=== PATIENT | female | born 1990 | race Caucasian/White ===

== ENCOUNTER 2018-08-26 15:30 | Day surgery (SDC) | payer OTHER, SELFPAY ==
[2018-08-25 15:18] VITALS: BMI 21.2
[2018-08-26] VITALS (8 sets, daily range): BP systolic 75–115; BP diastolic 39–67; PULSE 63–93; RESP 10–16; TEMP 36.7–36.9; O2SAT 96–100; BMI 20.5
--- NOTE | 2018-08-26 | PATH_ITS ---
[facility] Accession Number: [id number] . 01 Material submitted: . PART A: LEEP PART B: ENDOCERVICAL CURETTINGS . 02 Diagnosis: A. LEEP Biopsy of Cervix: High-grade squamous intraepithelial lesion (MONICA-2) with inked margins negative for atypia. Negative for evidence of invasive malignancy. . B. Endocervical Curetting: Fragments of endocervical tissue with squamous metaplasia and reactive epithelial changes, but negative for true dysplasia. [facility]/08/28/2018 . 02 Electronically signed: . Andrea Hernandez MD, Pathologist NPI- [id number] . 01 Gross description: . (A) Received in formalin, labeled LEEP, are multiple unoriented pieces of cervical tissue (2.2 x 2.0 x 0.3 cm in aggregate) with nava-pink smooth and shiny mucosa and pale pascual finely granular resection margins. No nodules, masses or lesions are identified. The specimen cannot be oriented, therefore, the resection margins are inked black. Serially sectioned and entirely submitted in cassettes A1 and A2. (B) Received in formalin, labeled ECC, are multiple fragments of nava- white and red-brown tissue (1.5 x 1.3 x less than 0.1 cm in aggregate). Filtered and entirely submitted in cassette B1. ([id number]) /[facility] . 02 Pathologist provided ICD-10: N87.1 . 02 CPT . 032621, [id number] Performed at: 01 [facility] [address], [place], [place] [id number] MD [address] MD Phone: [phone] Performed at: 02 [facility] [place] [address] [place] [id number] MD Varun Chan MD Phone: [phone]
[2018-08-26] MEDS: LACTATED RINGERS 1,000 ML 42 ML IV (15:58)
--- NOTE | 2018-08-26 16:20 | PM.PREOP ---
Pre-operative Note Interval Note Pre-op Check: Yes History & Physical exam performed today by Physician Changes: No
--- NOTE | 2018-08-26 16:20 | PM.GYNHP.1 ---
History of Present Illness Reason for admission: other (High-grade dysplasia) Narrative: Derik Arboleda is a 27 year old female here for LEEP procedure for high-grade dysplasia of the cervix [facility] Medical History Cervical high risk HPV (human papillomavirus) test positive (Acute) IUD (intrauterine device) in place (Acute) Social History household members: significant other Smoking Status: Never smoker Meds Home Medications Medication Instructions Recorded Confirmed Type sulfamethoxazole-trimethoprim 1 tab PO BID 08/26/18 08/26/18 History [Bactrim] Allergies Allergy/AdvReac Type Severity Reaction Status Date / Time No Known Drug Allergies Allergy Verified 08/13/18 15:50 Review of Systems Review of Systems All systems reviewed & are unremarkable except as noted in HPI and below Exam Vital Signs (past 8 hours): - 08/26/18 15:50 Temperature 98.2 F Pulse Rate 83 Respiratory Rate 16 Blood Pressure 115/67 Pulse Oximetry 100 Oxygen Delivery Method Room Air Narrative Exam Narrative: HEENT exam within normal limits. Lungs are clear to auscultation and percussion. Heart is regular rate and rhythm no S3-S4 or murmurs. Abdomen is soft, nontender. Pelvic exam deferred for exam under anesthesia. Extremities without edema and nontender Assessment & Plan (1) Dysplasia of cervix, high grade MONICA 2: Current visit: Yes Status: Acute (2) Papanicolaou smear of cervix with positive high risk human papilloma virus (HPV) test: Current visit: Yes Status: Acute Plan: Assessment/Plan Narrative: Patient is scheduled for LEEP procedure for high-grade dysplasia with high-risk HPV . Consent form was reviewed with the patient, of risks and benefits discussed the patient including bleeding, infection, risks for decreased fertility and delivery. Consent form was signed after her questions were answered.
--- NOTE | 2018-08-26 16:25 | P.HPOB_ITS ---
History of Present Illness Reason for admission: other (High-grade dysplasia) Narrative: Derik Arboleda is a 27 year old female here for LEEP procedure for high-grade dysplasia of the cervix [facility] Medical History Cervical high risk HPV (human papillomavirus) test positive (Acute) IUD (intrauterine device) in place (Acute) Social History household members: significant other Smoking Status: Never smoker Meds Home Medications Medication Instructions Recorded Confirmed Type sulfamethoxazole-trimethoprim 1 tab PO BID 08/26/18 08/26/18 History [Bactrim] Allergies Allergy/AdvReac Type Severity Reaction Status Date / Time No Known Drug Allergies Allergy Verified 08/13/18 15:50 Review of Systems Review of Systems All systems reviewed & are unremarkable except as noted in HPI and below Exam Vital Signs (past 8 hours): - 08/26/18 15:50 Temperature 98.2 F Pulse Rate 83 Respiratory Rate 16 Blood Pressure 115/67 Pulse Oximetry 100 Oxygen Delivery Method Room Air Narrative Exam Narrative: HEENT exam within normal limits. Lungs are clear to auscultation and percussion. Heart is regular rate and rhythm no S3-S4 or murmurs. Abdomen is soft, nontender. Pelvic exam deferred for exam under anesthesia. Extremities without edema and nontender Assessment & Plan (1) Dysplasia of cervix, high grade MONICA 2: Current visit: Yes Status: Acute (2) Papanicolaou smear of cervix with positive high risk human papilloma virus ( HPV) test: Current visit: Yes Status: Acute Plan: Assessment/Plan Narrative: Patient is scheduled for LEEP procedure for high-grade dysplasia with high-risk HPV . Consent form was reviewed with the patient, of risks and benefits discussed the patient including bleeding, infection, risks for decreased fertility and delivery. Consent form was signed after her questions were answered.
--- NOTE | 2018-08-26 17:00 | P.OP_ITS ---
Operative Date/Time/Diagnoses Date of procedure: 08/26/18 Time of procedure: 16:54 Pre-op diagnosis: MONICA-III of the cervix with high-grade HPV Post-op diagnosis: same Procedure & Clinicians Procedure: LEEP with ECC Same procedure as scheduled: Yes Indications: MONICA-III of the cervix with positive high-risk HPV Surgeon: Ioana Keenan Click Yes if Unassisted: Yes Anesthesia Type: General Operative Notes Findings: Normal exam under anesthesia Closure Type: not applicable Specimen(s): other (LEEP of cervix, ECC) Estimated Blood Loss (mL): 1 Procedure in detail: Patient was brought to the operating room where she underwent general anesthesia. She was placed in low [place] stirrups and prepped and draped in usual sterile fashion. A check system was reviewed with the staff in the room prior to beginning the case. The coated speculum was placed in the vagina. The cervix was stained with Lugol's. A coated single- tooth tenaculum was placed on the anterior lip of the cervix outside of the stained area. The cervix was injected with 20 cc of 1% lidocaine with epinephrine. The LEEP was used to remove the entire squamocolumnar junction. Attempt was made to save the IUD strings but was unsuccessful. An ECC was performed and the tissue sent to pathology. Bleeding was controlled with cauterization of the base and then outside of LEEP margins. Monsel's was placed. Counts of instruments and sponges were correct. Patient went to recovery room in good condition. Complications: none Condition: stable Disposition: same day surgery Plan for aftercare: Routine post LEEP
[2018-08-26] MEDS: LIDOCAINE 1% W/EPI INJ 20 ML INJ (17:02)
[2018-08-26] MEDS: POTASSIUM IODIDE/IODINE 473 ML SOLUTION TOP (17:02)
== END 2018-08-26 18:24 | disposition home or self-care (01) ==
PROVIDERS: Visit Provider Specialist
PROC: 0UBC7ZZ Excision of Cervix, Via Natural or Artificial Opening (ICD-10-PCS; CPT 57522; principal; 2018-08-26 17:00)
DX: N87.1 Moderate cervical dysplasia (principal); R87.810 Cervical high risk human papillomavirus (HPV) DNA test positive; B97.7 Papillomavirus as the cause of diseases classified elsewhere
CPT/HCPCS: 57460; J1100; J1885; J2250; J2405; J2704; J3010